=== PATIENT | female | born 1940 | race Caucasian/White ===

== ENCOUNTER 2023-02-18 03:59 | Inpatient (IN) ==
[2023-02-18] MEDS ORDERED: 0.9 % SODIUM CHLORIDE 1,000 ML IV ONE ×2 (04:16→06:52)
[2023-02-18] MEDS ORDERED: ACETAMINOPHEN 500 MG TABLET PO ONE (04:27)
[2023-02-18] MEDS ORDERED: KETOROLAC 30 MG/ML VIAL IV ONE (04:27)
[2023-02-18] MEDS ORDERED: cefTRIAXone 1 GM VIAL IV ONE (04:28)
[2023-02-18 05:53] LABS: Basophils # (Auto) 0.05 K/mcL (0.00-0.30); Basophils % (Auto) 0.3 % (0.0-2.0); Eosinophils # (Auto) 0 K/mcL (0.00-0.70); Eosinophils % (Auto) 0 % (0.0-7.0); Hematocrit 39.2 % (34.1-44.9); Hemoglobin 11.9 g/dL (11.2-15.7); Lymphocytes # (Auto) 0.33 K/mcL (1.50-4.80); Lymphocytes % (Auto) 1.8 % (15.5-49.0); Mean Cell Volume 106.2 fL (80.0-100.0); Mean Corpuscular HGB Conc 30.4 g/dL (31.0-36.0); Mean Platelet Volume 9.8 fL (8.8-12.5); Monocytes # (Auto) 0.39 K/mcL (0.10-0.90); Monocytes % (Auto) 2.1 % (1.0-12.0); Neutrophils % (Auto) 95.4 % (38.0-78.0); Platelet Count 257 K/mcL (140-440); RBC 3.69 M/mcL (3.59-5.38); Red Cell Distribution Width 13.2 % (11.5-14.5); WBC 18.9 K/mcL (4.5-11.0)
[2023-02-18 06:06] LABS: ALT/SGPT 23 U/L (<40); AST/SGOT 23 U/L (<32); Albumin 3.1 gm/dL (3.2-5.2); Alkaline Phosphatase 111 U/L (39-117); Bilirubin,Total 0.4 mg/dL (0.1-1.0); Blood Urea Nitrogen 16 mg/dL (8-23); Calcium 8.6 mg/dL (8.6-10.4); Carbon Dioxide 19 mmol/L (22-30); Chloride 102 mmol/L (96-108); Globulin 3.1 gm/dL (2.2-3.7); Glomerular Filtration Rate 51; Glucose 141 mg/dL (70-105)
[2023-02-18] MEDS ORDERED: 0.9 % SODIUM CHLORIDE 500 ML IV ONE ×2 (07:14→16:12)
[2023-02-18 08:16] LABS: Appearance,Urine TURBID (Clear); Bilirubin,Urine Negative (Negative); Color,Urine YELLOW; Culture Indicated,Urine yes; Glucose,Urine (UA) Negative (Negative); Ketones,Urine Negative (Negative); Leukocyte Esterase,Urine 500 /uL (Negative); Nitrate,Urine POS (Negative); Protein,Urine 100 mg/dL (Negative); Specific Gravity,Urine 1.012 (1.000-1.035); Urine Blood >=1.0 mg/dL (Negative); Urine RBC > 182 /hpf (0-1); Urine Squamous Epithelial Cell 0 /hpf (0-4); Urine Transitional Epi Cells < 1 /hpf (0-2); Urine WBC > 182 /hpf (0-4); Urobilinogen,Urine Negative
[2023-02-18] MEDS ORDERED: ACETAMINOPHEN 325 MG TABLET PO ONE (10:22)
[2023-02-18] MEDS ORDERED: LACTULOSE 20 GM/30 ML ORAL.SOL PO PRN (12:51)
[2023-02-18] MEDS ORDERED: ACETAMINOPHEN 325 MG TABLET PO PRN (12:51)
[2023-02-18] MEDS ORDERED: KETOROLAC 30 MG/ML VIAL IV PRN (12:51)
[2023-02-18] MEDS ORDERED: SENNOSIDES 1 TABLET PO PRN (12:51)
[2023-02-18] MEDS ORDERED: ONDANSETRON 4 MG/2 ML VIAL IV PRN (12:51)
[2023-02-18] MEDS ORDERED: 0.9 % SODIUM CHLORIDE 1,000 ML IV SCH (12:51)
[2023-02-18] MEDS ORDERED: DEXTROSE 50% 50 ML VIAL IV PRN (12:51)
[2023-02-18] MEDS ORDERED: ALBUTEROL SULFATE 2.5 MG/3 ML NEBULIZER NEB PRN (12:51)
[2023-02-18] MEDS ORDERED: DEXTROSE 31 GM ORAL.SUSP PO PRN (12:51)
[2023-02-18] MEDS: IPRATROPIUM/ALBUTEROL 3 ML AMPUL.NEB NEB SCH ×2 (13:37→19:15)
[2023-02-18] MEDS ORDERED: IOPAMIDOL 100 ML BOTTLE IV ONE (15:28)
[2023-02-18] MEDS: 0.9 % SODIUM CHLORIDE 10 ML SYRINGE IV SCH ×2 (16:17→20:15)
[2023-02-18] MEDS: PIPERACILLIN SODIUM/TAZOBACTAM 4.5 GM in DEXTROSE 5% IN WATER 50 ML IV SCH ×2 (17:26→20:02)
[2023-02-18] MEDS: 0.9 % SODIUM CHLORIDE 1,000 ML IV SCH (17:27)
[2023-02-18] MEDS: 0.9 % SODIUM CHLORIDE 250 ML IV SCH (17:28)
[2023-02-18] MEDS: NOREPINEPHRINE BITARTRATE 8 MG in 0.9 % SODIUM CHLORIDE 242 ML IV SCH (17:28)
[2023-02-18] MEDS: INSULIN LISPRO 1 UNIT/0.01 ML UNIT SQ SCH ×2 (17:33→20:14)
[2023-02-18] MEDS ORDERED: cefTRIAXone 1 GM VIAL IV SCH (18:00)
[2023-02-18] MEDS: HYDROcodone/APAP 5/325MG TABLET PO PRN (19:11)
[2023-02-18] MEDS: DOCUSATE SODIUM 100 MG CAPSULE PO SCH (20:05)
[2023-02-19] MEDS: PIPERACILLIN SODIUM/TAZOBACTAM 4.5 GM in DEXTROSE 5% IN WATER 50 ML IV SCH ×4 (00:02→21:46)
[2023-02-19] MEDS: HYDROcodone/APAP 5/325MG TABLET PO PRN ×2 (01:01→15:37)
[2023-02-19] MEDS: 0.9 % SODIUM CHLORIDE 1,000 ML IV SCH ×3 (01:02→08:37)
[2023-02-19] MEDS: IPRATROPIUM/ALBUTEROL 3 ML AMPUL.NEB NEB SCH ×2 (01:05→07:15)
[2023-02-19] MEDS: 0.9 % SODIUM CHLORIDE 250 ML IV SCH (05:05)
[2023-02-19] MEDS: 0.9 % SODIUM CHLORIDE 10 ML SYRINGE IV SCH ×4 (05:05→21:45)
[2023-02-19] MEDS: NOREPINEPHRINE BITARTRATE 8 MG in 0.9 % SODIUM CHLORIDE 242 ML IV SCH (06:39)
[2023-02-19] MEDS: INSULIN LISPRO 1 UNIT/0.01 ML UNIT SQ SCH ×4 (07:30→21:06)
[2023-02-19 07:37] LABS: Albumin 2.2 gm/dL (3.2-5.2); Blood Urea Nitrogen 22 mg/dL (8-23); Carbon Dioxide 19 mmol/L (22-30); Chloride 100 mmol/L (96-108); Glomerular Filtration Rate 41; Glucose 111 mg/dL (70-105); Phosphorous 3.6 mg/dL (2.5-4.5)
[2023-02-19] MEDS: POTASSIUM CHLORIDE 20 MEQ TABLET PO SCH ×3 (07:59→17:57)
[2023-02-19] MEDS ORDERED: NOREPINEPHRINE BITARTRATE 8 MG in 0.9 % SODIUM CHLORIDE 242 ML IV PRN (08:00)
[2023-02-19] MEDS: DOCUSATE SODIUM 100 MG CAPSULE PO SCH ×2 (08:37→21:06)
[2023-02-19] MEDS: ENOXAPARIN 40 MG/0.4 ML SYRINGE SQ SCH (08:45)
[2023-02-19 08:46] LABS: Basophils # (Auto) 0.05 K/mcL (0.00-0.30); Basophils % (Auto) 0.1 % (0.0-2.0); Eosinophils # (Auto) 0.06 K/mcL (0.00-0.70); Eosinophils % (Auto) 0.1 % (0.0-7.0); Hematocrit 29.4 % (34.1-44.9); Hemoglobin 9.4 g/dL (11.2-15.7); Lymphocytes # (Auto) 2.09 K/mcL (1.50-4.80); Lymphocytes % (Auto) 5.2 % (15.5-49.0); Mean Cell Volume 101.7 fL (80.0-100.0); Monocytes # (Auto) 2.41 K/mcL (0.10-0.90); Neutrophils % (Auto) 76.9 % (38.0-78.0); Platelet Count 214 K/mcL (140-440); RBC 2.89 M/mcL (3.59-5.38); Red Cell Distribution Width 13.6 % (11.5-14.5); WBC 40.2 K/mcL (4.5-11.0)
[2023-02-19] MEDS ORDERED: MAGNESIUM SULFATE 2 GM/50 ML BAG IV ONE (09:04)
[2023-02-19] MEDS: CLOPIDOGREL 75 MG TABLET PO SCH (09:25)
[2023-02-19] MEDS: ATORVASTATIN 40 MG TABLET PO SCH (09:25)
[2023-02-19] MEDS ORDERED: IPRATROPIUM/ALBUTEROL 3 ML AMPUL.NEB NEB PRN (10:55)
[2023-02-19] MEDS: hydrOXYzine 25 MG TABLET PO PRN ×2 (13:25→23:25)
[2023-02-19] MEDS: CALCIUM CARBONATE 500 MG TAB.CHEW CHEWED PRN (15:34)
[2023-02-19] MEDS: GABAPENTIN 100 MG CAPSULE PO SCH (21:04)
[2023-02-19] MEDS: MIRTAZAPINE 15 MG TABLET PO SCH (21:05)
[2023-02-19] MEDS: MELATONIN 3 MG TABLET PO PRN (21:05)
[2023-02-19] MEDS: traZODone HCL 50 MG TABLET PO PRN (21:05)
[2023-02-20] MEDS: PIPERACILLIN SODIUM/TAZOBACTAM 4.5 GM in DEXTROSE 5% IN WATER 50 ML IV SCH (05:37)
[2023-02-20] MEDS: 0.9 % SODIUM CHLORIDE 10 ML SYRINGE IV SCH ×3 (05:38→21:18)
[2023-02-20 06:48] LABS: Basophils # (Auto) 0.12 K/mcL (0.00-0.30); Basophils % (Auto) 0.4 % (0.0-2.0); Eosinophils # (Auto) 0.12 K/mcL (0.00-0.70); Eosinophils % (Auto) 0.4 % (0.0-7.0); Hematocrit 34.5 % (34.1-44.9); Hemoglobin 10.1 g/dL (11.2-15.7); Lymphocytes % (Auto) 3.1 % (15.5-49.0); Mean Cell Volume 107.5 fL (80.0-100.0); Mean Corpuscular HGB Conc 29.3 g/dL (31.0-36.0); Mean Platelet Volume 10.3 fL (8.8-12.5); Monocytes # (Auto) 1.66 K/mcL (0.10-0.90); Monocytes % (Auto) 5.7 % (1.0-12.0); Neutrophils % (Auto) 79.6 % (38.0-78.0); Platelet Count 224 K/mcL (140-440); RBC 3.21 M/mcL (3.59-5.38); Red Cell Distribution Width 13.8 % (11.5-14.5); WBC 28.9 K/mcL (4.5-11.0)
[2023-02-20 07:33] LABS: Albumin 2.5 gm/dL (3.2-5.2); Blood Urea Nitrogen 21 mg/dL (8-23); Calcium 9.1 mg/dL (8.6-10.4); Carbon Dioxide 17 mmol/L (22-30); Chloride 110 mmol/L (96-108); Glomerular Filtration Rate 41; Glucose 105 mg/dL (70-105); Phosphorous 2.2 mg/dL (2.5-4.5)
[2023-02-20] MEDS ORDERED: FUROSEMIDE 40 MG/4 ML VIAL IV ONE ×2 (07:47→09:40)
[2023-02-20] MEDS: CIPROFLOXACIN 400 MG/200 ML BAG IV SCH ×2 (09:24→21:28)
[2023-02-20] MEDS: ENOXAPARIN 40 MG/0.4 ML SYRINGE SQ SCH (09:24)
[2023-02-20] MEDS: ATORVASTATIN 40 MG TABLET PO SCH (09:25)
[2023-02-20] MEDS: LEVOTHYROXINE 50 MCG TABLET PO SCH (09:25)
[2023-02-20] MEDS: VENLAFAXINE 150 MG CAP.XL.24H PO SCH (09:25)
[2023-02-20] MEDS: CLOPIDOGREL 75 MG TABLET PO SCH (09:25)
[2023-02-20] MEDS: DOCUSATE SODIUM 100 MG CAPSULE PO SCH ×2 (09:25→21:18)
[2023-02-20] MEDS: ASPIRIN 81 MG TAB.CHEW PO SCH (09:25)
[2023-02-20] MEDS: INSULIN LISPRO 1 UNIT/0.01 ML UNIT SQ SCH ×4 (09:26→21:17)
[2023-02-20] MEDS: POTASSIUM CHLORIDE 20 MEQ TABLET PO SCH (09:27)
[2023-02-20] MEDS: IPRATROPIUM/ALBUTEROL 3 ML AMPUL.NEB NEB SCH ×4 (10:10→23:00)
[2023-02-20] MEDS ORDERED: ALBUTEROL SULFATE 2.5 MG/3 ML NEBULIZER NEB PRN (10:23)
[2023-02-20] MEDS ORDERED: FUROSEMIDE 20 MG/2 ML VIAL IV ONE ×2 (16:00)
[2023-02-20] MEDS: MELATONIN 3 MG TABLET PO PRN (21:18)
[2023-02-20] MEDS: GABAPENTIN 100 MG CAPSULE PO SCH (21:18)
[2023-02-20] MEDS: MIRTAZAPINE 15 MG TABLET PO SCH (21:18)
[2023-02-20] MEDS: traZODone HCL 50 MG TABLET PO PRN (21:18)
[2023-02-20] MEDS: HYDROcodone/APAP 5/325MG TABLET PO PRN (21:27)
[2023-02-20] MEDS ORDERED: POTASSIUM CHLORIDE 40 MEQ in DEXTROSE 5% IN WATER 500 ML IV ONE (23:23)
[2023-02-20] MEDS ORDERED: POTASSIUM CHLORIDE 20 MEQ TABLET PO ONE ×2 (23:24→23:33)
[2023-02-20] MEDS ORDERED: POTASSIUM CHLORIDE 20 MEQ/10 ML VIAL IV ONE (23:33)
[2023-02-21] MEDS: IPRATROPIUM/ALBUTEROL 3 ML AMPUL.NEB NEB SCH ×5 (02:57→21:46)
[2023-02-21 06:57] LABS: Basophils % (Auto) 0.5 % (0.0-2.0); Eosinophils # (Auto) 0.92 K/mcL (0.00-0.70); Eosinophils % (Auto) 4.2 % (0.0-7.0); Hematocrit 29.6 % (34.1-44.9); Hemoglobin 9.5 g/dL (11.2-15.7); Lymphocytes # (Auto) 2.04 K/mcL (1.50-4.80); Lymphocytes % (Auto) 9.2 % (15.5-49.0); Mean Corpuscular HGB Conc 32.1 g/dL (31.0-36.0); Mean Platelet Volume 10.6 fL (8.8-12.5); Monocytes # (Auto) 1.59 K/mcL (0.10-0.90); Monocytes % (Auto) 7.2 % (1.0-12.0); Neutrophils % (Auto) 78.4 % (38.0-78.0); Platelet Count 234 K/mcL (140-440); RBC 2.96 M/mcL (3.59-5.38); Red Cell Distribution Width 13.9 % (11.5-14.5); WBC 22.1 K/mcL (4.5-11.0)
[2023-02-21 07:03] LABS: ALT/SGPT 33 U/L (<40); AST/SGOT 22 U/L (<32); Albumin 2.5 gm/dL (3.2-5.2); Albumin/Globulin Ratio 0.7 (1.0-2.3); Alkaline Phosphatase 111 U/L (39-117); Bilirubin,Direct < 0.2 mg/dL (0-0.3); Bilirubin,Total 0.2 mg/dL (0.1-1.0); Blood Urea Nitrogen 18 mg/dL (8-23); Calcium 8.5 mg/dL (8.6-10.4); Carbon Dioxide 22 mmol/L (22-30); Chloride 103 mmol/L (96-108); Globulin 3.4 gm/dL (2.2-3.7); Glomerular Filtration Rate 37; Glucose 144 mg/dL (70-105); Lactate Dehydrogenase 176 U/L (135-225); Phosphorous 2.9 mg/dL (2.5-4.5); Triglycerides 105 mg/dL (<150); Uric Acid 5.4 mg/dL (2.5-8.0)
[2023-02-21] MEDS: INSULIN LISPRO 1 UNIT/0.01 ML UNIT SQ SCH ×4 (08:04→21:30)
[2023-02-21] MEDS: CIPROFLOXACIN 400 MG/200 ML BAG IV SCH ×2 (08:38→21:27)
[2023-02-21] MEDS: CLOPIDOGREL 75 MG TABLET PO SCH (08:39)
[2023-02-21] MEDS: DOCUSATE SODIUM 100 MG CAPSULE PO SCH ×2 (08:39→21:29)
[2023-02-21] MEDS: ENOXAPARIN 40 MG/0.4 ML SYRINGE SQ SCH (08:39)
[2023-02-21] MEDS: LEVOTHYROXINE 50 MCG TABLET PO SCH (08:39)
[2023-02-21] MEDS: ASPIRIN 81 MG TAB.CHEW PO SCH (08:39)
[2023-02-21] MEDS: VENLAFAXINE 150 MG CAP.XL.24H PO SCH (08:39)
[2023-02-21] MEDS: 0.9 % SODIUM CHLORIDE 10 ML SYRINGE IV SCH ×4 (08:39→21:30)
[2023-02-21] MEDS: ATORVASTATIN 40 MG TABLET PO SCH (08:41)
[2023-02-21] MEDS: CALCIUM CARBONATE 500 MG TAB.CHEW CHEWED PRN (18:59)
[2023-02-21] MEDS: LABETALOL 5 MG/ML ML IV PRN (19:32)
[2023-02-21] MEDS: MIRTAZAPINE 15 MG TABLET PO SCH (21:28)
[2023-02-21] MEDS: HYDROcodone/APAP 5/325MG TABLET PO PRN (21:29)
[2023-02-21] MEDS: traZODone HCL 50 MG TABLET PO PRN (21:29)
[2023-02-21] MEDS: GABAPENTIN 100 MG CAPSULE PO SCH (21:29)
[2023-02-22] MEDS: 0.9 % SODIUM CHLORIDE 10 ML SYRINGE IV SCH ×2 (05:19→12:24)
[2023-02-22 07:07] LABS: Hematocrit 35.3 % (34.1-44.9); Hemoglobin 10.8 g/dL (11.2-15.7); Mean Cell Volume 100.9 fL (80.0-100.0); Mean Corpuscular HGB Conc 30.6 g/dL (31.0-36.0); Mean Platelet Volume 10.7 fL (8.8-12.5); Platelet Count 284 K/mcL (140-440); Red Cell Distribution Width 14.2 % (11.5-14.5); WBC 16.9 K/mcL (4.5-11.0)
[2023-02-22 07:20] LABS: ALT/SGPT 41 U/L (<40); AST/SGOT 29 U/L (<32); Albumin 2.8 gm/dL (3.2-5.2); Albumin/Globulin Ratio 0.7 (1.0-2.3); Alkaline Phosphatase 127 U/L (39-117); Bilirubin,Direct < 0.2 mg/dL (0-0.3); Bilirubin,Total 0.3 mg/dL (0.1-1.0); Blood Urea Nitrogen 13 mg/dL (8-23); Calcium 9.3 mg/dL (8.6-10.4); Carbon Dioxide 23 mmol/L (22-30); Chloride 105 mmol/L (96-108); Globulin 3.8 gm/dL (2.2-3.7); Glomerular Filtration Rate 41; Glucose 109 mg/dL (70-105); Lactate Dehydrogenase 217 U/L (135-225); Phosphorous 3.5 mg/dL (2.5-4.5); Triglycerides 97 mg/dL (<150)
[2023-02-22] MEDS: INSULIN LISPRO 1 UNIT/0.01 ML UNIT SQ SCH ×2 (07:37→12:24)
[2023-02-22] MEDS: LEVOTHYROXINE 50 MCG TABLET PO SCH (08:37)
[2023-02-22] MEDS: ASPIRIN 81 MG TAB.CHEW PO SCH (08:37)
[2023-02-22] MEDS: ATORVASTATIN 40 MG TABLET PO SCH (08:37)
[2023-02-22] MEDS: DOCUSATE SODIUM 100 MG CAPSULE PO SCH (08:38)
[2023-02-22] MEDS: ENOXAPARIN 40 MG/0.4 ML SYRINGE SQ SCH (08:38)
[2023-02-22] MEDS: CLOPIDOGREL 75 MG TABLET PO SCH (08:38)
[2023-02-22] MEDS: VENLAFAXINE 150 MG CAP.XL.24H PO SCH (08:38)
[2023-02-22 08:43] LABS: Band Neutrophils % 3 % (0-10); Eosinophils % (Manual) 6 % (0-7); Lymphocytes % 10 % (15-49); Macrocytosis 1+ (None Seen); Monocytes % (Manual) 11 % (1-12); Platelet Estimate NORMAL (Normal); Polychromasia FEW (None Seen); RBC Morphology ABNORMAL (Normal); Segmented Neutrophils % 70 % (38-78)
[2023-02-22] MEDS: CIPROFLOXACIN 400 MG/200 ML BAG IV SCH (08:47)
[2023-02-22] MEDS: IPRATROPIUM/ALBUTEROL 3 ML AMPUL.NEB NEB SCH (09:26)
[2023-02-22] MEDS: LABETALOL 5 MG/ML ML IV PRN (09:41)
== END 2023-02-22 15:30 | disposition home or self-care (01) | DRG 872 ==
LOC: ED 03:59 → ICU 12:29 → MEDSUR 02-21 12:17
PROVIDERS: ADMIT Internal Medicine; ATTEND Internal Medicine